=== PATIENT | male | born 1970 | race Caucasian/White ===

== ENCOUNTER 2025-09-18 12:35 | Emergency (ER) | payer MEDICAID ==
[~2025-09-18] VITALS: Ht 175.3 cm; Wt 102.0 kg
[2025-09-18] MEDS: ALBUTEROL (0.083%) 2.5MG/3ML NEB HHN SCH (13:45)
[2025-09-18] MEDS: IPRATROPIUM BROMIDE (0.02%) 0.5MG/2.5ML NEB HHN SCH (13:45)
[2025-09-18] MEDS: PREDNISONE 20MG TABLET PO ONE (13:51)
[2025-09-18 13:59] VITALS: PULSE 114; RESP 19; O2SAT 94
[2025-09-18] MEDS ORDERED: P50 MT (14:42)
[2025-09-18] MEDS ORDERED: ALBU18HF2 IH (14:42)
[2025-09-18 15:34] VITALS: BP 148/72; PULSE 88; RESP 18; TEMP 36.9; O2SAT 97
== END 2025-09-18 15:35 | disposition home or self-care (01) ==
LOC: ER 12:35
DX: J45.901 Unspecified asthma with (acute) exacerbation (principal); I10 Essential (primary) hypertension; E11.9 Type 2 diabetes mellitus without complications; Z79.899 Other long term (current) drug therapy; Z79.52 Long term (current) use of systemic steroids
CPT/HCPCS: 94644; 99285; J7512; Z7610 ×2; 94070; 94640